=== PATIENT | female | born 1995 | race Caucasian/White ===

== ENCOUNTER 2021-11-13 10:35 | Emergency (ER) | payer MEDICAID ==
[~2021-11-13] VITALS: Ht 165.1 cm; Wt 86.2 kg
[2021-11-13 10:35] VITALS: BP_SYST 116
--- NOTE | 2021-11-13 10:40 | NUR ---
Patient triaged and placed in waiting room. VSS and patient appears in no acute distress at this time. Accompanied by FRIEND, awaiting available bed, and MD notified of need for MSE.
--- NOTE | 2021-11-13 10:55 | NUR ---
PT STATES LAST NIGHT SHE TRIPPED AND FELL WITH INJURY TO LEFT 5TH DIGIT, DIGIT IS RED AND SWOLLEN, LIMITED ROM DUE TO PAIN.
--- NOTE | 2021-11-13 14:10 | NUR ---
Dr Martinez evaluating patient at bedside
[2021-11-13 15:39] VITALS: BP_SYST 116
--- NOTE | 2021-11-13 15:42 | NUR ---
Patient given written and verbal discharge instructions and verbalizes understanding. ER MD discussed with patient the results and treatment provided. Patient in stable condition. ID arm band removed. No Rx given. Patient educated on pain management and to follow up with PMD. Pain Scale 2/10. Opportunity for questions provided and answered. Medication side effect fact sheet provided.
== END 2021-11-13 15:39 | disposition home or self-care (01) ==
LOC: SED 10:35 → EDBD 10:35 → SED 15:39
DX: S62.627A Displaced fracture of middle phalanx of left little finger, initial encounter for closed fracture (principal); Z79.899 Other long term (current) drug therapy; W01.198A Fall on same level from slipping, tripping and stumbling with subsequent striking against other object, initial encounter; Y93.54 Activity, bowling; Y92.89 Other specified places as the place of occurrence of the external cause; Y99.8 Other external cause status
CPT/HCPCS: 73140-TC; 99283